=== PATIENT | male | born 1965 | race Caucasian/White ===

== ENCOUNTER 2019-09-17 13:07 | Inpatient (IN) | payer OTHER, SELFPAY ==
[~2019-09-17] VITALS: Ht 175.3 cm; Wt 79.4 kg
[2019-09-17] MEDS ORDERED: NAPROXEN375 MG PO (13:39)
[2019-09-17] MEDS ORDERED: QUALITY CHOICE650 M1 PO (13:40)
[2019-09-17] MEDS ORDERED: METFORMIN HYD1000 M2 PO (13:41)
[2019-09-17] MEDS ORDERED: RELION HUMUL100 U/M2 SQ (13:43)
[2019-09-17] MEDS ORDERED: HUMULIN R100 U/1 M1 SQ (13:43)
[2019-09-17] MEDS ORDERED: RITE AID GLUCOSE4 GM CH (13:44)
[2019-09-17] MEDS ORDERED: ZESTRIL5 MG PO (13:44)
[2019-09-17] MEDS ORDERED: ATORVASTATIN CA20 M1 PO (13:44)
[2019-09-17] MEDS ORDERED: LANTI SQ (13:45)
[2019-09-17 14:21] LABS: BASOPHIL % 0 % (0-2); PLATELET COUNT 135 x10^3mcL (130-400); RED CELL DISTRIBUTION WIDTH 13.3 % (11.5-14.5)
[2019-09-17 14:22] LABS: CALCIUM 8.2 mg/dL (8.5-10.1); CARBON DIOXIDE 26.3 mmol/L (21-32); CHLORIDE SERUM 100 mmol/L (98-107); CREATININE SERUM 0.9 mg/dL (0.7-1.3); GFR1 > 60 mL/min; GLUCOSE SERUM 172 mg/dL (74-106); POTASSIUM SERUM 3.8 mmol/L (3.5-5.1); SODIUM SERUM 135 mmol/L (136-145)
[2019-09-17 14:27] LABS: ALKALINE PHOSPHATASE 38 U/L (46-116); ALT/SGPT 58 U/L (16-63); AST/SGOT 103 U/L (15-37); BILIRUBIN TOTAL 0.6 mg/dL (0.20-1.00); C REACTIVE PROTEIN 5.1 mg/dL (<=0.9); LACTIC DEHYDROGENASE (LDH) 441 U/L (100-190); TOTAL PROTEIN, SERUM 6.3 g/dL (6.4-8.2)
[2019-09-17 14:54] VITALS: BP 109/73
[2019-09-17 15:58] VITALS: Ht 175.3 cm; Wt 79.4 kg
[2019-09-17 17:26] VITALS: BP 108/76
[2019-09-17 21:00] VITALS: BP 103/72
[2019-09-18 05:45] VITALS: BP 117/63
[2019-09-18 07:42] LABS: BASOPHIL % 0.5 % (0-2); PLATELET COUNT 142 x10^3mcL (130-400); RED CELL DISTRIBUTION WIDTH 13.5 % (11.5-14.5)
[2019-09-18 07:43] LABS: C REACTIVE PROTEIN 5.3 mg/dL (<=0.9)
[2019-09-18 08:00] VITALS: BP 107/77
[2019-09-18 09:04] LABS: CALCIUM 8.2 mg/dL (8.5-10.1); CARBON DIOXIDE 26.7 mmol/L (21-32); CHLORIDE SERUM 103 mmol/L (98-107); CREATININE SERUM 0.8 mg/dL (0.7-1.3); GFR1 > 60 mL/min; GLUCOSE SERUM 94 mg/dL (74-106); POTASSIUM SERUM 3.9 mmol/L (3.5-5.1); SODIUM SERUM 139 mmol/L (136-145)
[2019-09-18 12:00] VITALS: BP 120/74
[2019-09-18 17:59] VITALS: BP 109/72
[2019-09-18 21:30] VITALS: BP 98/74
[2019-09-19 05:45] VITALS: BP 102/72
[2019-09-19 06:12] LABS: microscopic required? NO
[2019-09-19 07:22] LABS: CALCIUM 8.6 mg/dL (8.5-10.1); CARBON DIOXIDE 28.2 mmol/L (21-32); CHLORIDE SERUM 103 mmol/L (98-107); CREATININE SERUM 0.7 mg/dL (0.7-1.3); GFR1 > 60 mL/min; GLUCOSE SERUM 110 mg/dL (74-106); POTASSIUM SERUM 3.8 mmol/L (3.5-5.1); SODIUM SERUM 139 mmol/L (136-145)
[2019-09-19 08:04] LABS: BASOPHIL % 0.1 % (0-2); PLATELET COUNT 187 x10^3mcL (130-400); RED CELL DISTRIBUTION WIDTH 12.2 % (11.5-14.5)
[2019-09-19 08:40] LABS: UA SPECIFIC GRAVITY <=1.005 (1.005-1.035); urine erythrocyte NEGATIVE (NEGATIVE)
[2019-09-19 09:10] VITALS: BP 102/59
[2019-09-19 13:04] VITALS: BP 112/72
[2019-09-19 18:13] VITALS: BP 115/62
== END 2019-09-19 19:25 | disposition other institution (70) | DRG 177 ==
LOC: ED 13:07 → DU 14:36
PROVIDERS: Emergency Medicine; Internal Medicine; ADMIT Internal Medicine
DX: U07.1 COVID-19 (principal); J96.01 Acute respiratory failure with hypoxia; J12.89 Other viral pneumonia; I10 Essential (primary) hypertension; J20.9 Acute bronchitis, unspecified; E11.9 Type 2 diabetes mellitus without complications; Z79.899 Other long term (current) drug therapy; Z79.4 Long term (current) use of insulin
CPT/HCPCS: 36600; 82962; 83880; 85378; 87804; G0378; J0456; J0696; J1650; J7030; J7040; J7050; J7060